=== PATIENT | male | born 1955 | race African-American/Black ===

== ENCOUNTER 2020-09-19 10:46 | Emergency (ER) | payer MEDICAID ==
[~2020-09-19] VITALS: Ht 172.7 cm; Wt 96.0 kg
[~2020-09-19 10:46] MED LIST: AMLO10TA80 MT; BENA10TA74 MT; SIMV-43 MT; TAMS-11 MT
[2020-09-19 11:04] VITALS: BP 163/80
[2020-09-19 12:03] LABS: BASOPHILS % 1.1 % (0.0-2.0); EOSINOPHILS % 5.7 % (0.0-5.0); HEMATOCRIT. 38.2 % (42.0-52.0); HEMOGLOBIN. 13.2 g/dL (14.0-18.0); LYMPHOCYTES % 44.6 % (20.0-50.0); MEAN CORPUSCULAR HEMOGLOBIN 28.9 pg (28.0-32.0); MEAN CORPUSCULAR VOLUME 83.6 fL (80.0-94.0); MEAN PLATELET VOLUME 7.7 fl (7.4-10.4); MONOCYTES % 7.9 % (2.0-8.0); NEUTROPHILS % 40.7 % (40.0-76.0); PLATELET 200 x1000/uL (130-400); RED BLOOD CELL COUNT 4.57 mill/uL (4.7-6.1); RED CELL DISTRIBUTION WIDTH 13.4 % (11.6-14.6)
[2020-09-19 12:08] LABS: CHLORIDE 100 mEq/L (98-107)
[2020-09-19 12:10] LABS: PROTHROMBIN TIME 10.7 sec (9.6-11.0)
[2020-09-19] MEDS ORDERED: POTASSIUM CHLORIDE 20MEQ TABLET SR PO ONE ×2 (12:30→12:45)
[2020-09-19] MEDS ORDERED: POTA-79 PO (12:35)
== END 2020-09-19 13:23 | disposition home or self-care (01) ==
LOC: ER 10:46
DX: E87.6 Hypokalemia (principal); I10 Essential (primary) hypertension; J45.909 Unspecified asthma, uncomplicated; Z86.73 Personal history of transient ischemic attack (TIA), and cerebral infarction without residual deficits
CPT/HCPCS: 36415; 80053; 83735; 85025; 93005; 99284

== ENCOUNTER 2024-08-13 13:09 | Emergency (ER) | payer MEDICAID, OTHER ==
[~2024-08-13] VITALS: Ht 167.6 cm; Wt 80.7 kg
[~2024-08-13 13:09] MED LIST changes: +POTA-354 PO
[2024-08-13 13:22] VITALS: O2SAT 98
[2024-08-13 13:57] LABS: CHLORIDE 99 mEq/L (98-107); SODIUM 142 mEq/L (136-145)
[2024-08-13 13:58] LABS: BASOPHILS % 0.5 % (0.0-2.0); CALCIUM 9.6 mg/dL (8.7-10.4); CARBON DIOXIDE 35 mEq/L (21-32); EOSINOPHILS % 3.6 % (0.0-5.0); HEMATOCRIT. 37.9 % (42.0-52.0); HEMOGLOBIN. 12.2 g/dL (14.0-18.0); LYMPHOCYTES % 46.6 % (20.0-50.0); MEAN CORPUSCULAR HEMOGLOBIN 27.6 pg (28.0-32.0); MEAN CORPUSCULAR HGB CONC 32.3 g/dL (31.0-37.0); MEAN CORPUSCULAR VOLUME 85.3 fL (80.0-94.0); MEAN PLATELET VOLUME 8.1 fl (7.4-10.4); MONOCYTES % 8.2 % (2.0-8.0); NEUTROPHILS % 41.1 % (40.0-76.0); PLATELET 189 x1000/uL (130-400); RED BLOOD CELL COUNT 4.44 mill/uL (4.7-6.1); RED CELL DISTRIBUTION WIDTH 13.3 % (11.6-14.6); WHITE BLOOD COUNT 5.1 x1000/uL (4.5-11.0)
[2024-08-13 14:03] LABS: CREATININE 0.8 mg/dL (0.6-1.3); GLUCOSE 103 mg/dL (70-105); UREA NITROGEN BLOOD 12 mg/dL (9-23)
[2024-08-13 14:14] LABS: POTASSIUM 2.7 mEq/L (3.5-5.1)
[2024-08-13 16:40] VITALS: TEMP 37.2
[2024-08-13 17:43] LABS: TROPONIN I HIGH SENSITIVITY 31 ng/L (3.0-53)
[2024-08-13 17:47] LABS: T4 FREE 1.18 ng/dL (0.89-1.76); THYROID STIMULATING HORMONE 0.77 uIU/mL (0.55-4.78)
[2024-08-13] MEDS: POTASSIUM CHLORIDE 20MEQ TABLET SR PO ONE (18:28)
[2024-08-13] MEDS ORDERED: DOXY100C5 MT (19:25)
[2024-08-13] MEDS ORDERED: POTA-354 MT (19:39)
[2024-08-13 19:56] VITALS: BP 139/84; PULSE 87; RESP 12; O2SAT 98
== END 2024-08-13 20:28 | disposition home or self-care (01) ==
LOC: ER 13:09
DX: L03.116 Cellulitis of left lower limb (principal); J45.909 Unspecified asthma, uncomplicated; I10 Essential (primary) hypertension; Z79.899 Other long term (current) drug therapy; Z86.73 Personal history of transient ischemic attack (TIA), and cerebral infarction without residual deficits
CPT/HCPCS: 80048; 83880; 84439; 83735; 84443; 85025; 85379; 84484; 36415; 93971; 73620; 99284; Z7610